=== PATIENT | female | born 1980 | race Caucasian/White ===

== ENCOUNTER → 2019-03-05 | Outpatient (CLI) | payer BC ==
--- NOTE | 2019-03-05 13:00 | RAD ---
Examination: Ultrasound abdomen complete HISTORY: History of abdominal pain COMPARISON: None available FINDINGS: The visualized pancreas grossly appears unremarkable. The visualized aorta, IVC within normal limits of dimension. The echogenicity liver grossly appears unremarkable. The right lobe of the liver measures 12.2 cm. The common bile duct measures 1.9 mm in transverse dimension. No evidence of gallstones. The gallbladder wall thickness measures 1.5 mm. The right kidney measures 10.4 x 4.8 x 4.4 cm. The right kidney is somewhat limited due to bowel gas. The left kidney measures 10.3 x 5.6 x 5.2 cm The spleen measures 9.3 cm in length. IMPRESSION: 1. Unremarkable visualized exam. Electronically signed by: Bob Anderson MD (03/05/2019 12:57 PM) [id number]
--- NOTE | 2019-03-05 13:06 | RAD ---
Examination: Ultrasound pelvis HISTORY: History of left lower quadrant abdominal pain COMPARISON: None available FINDINGS: The uterus measures 7.8 x 4.8 x 4.4 cm. The uterus is retroverted. Small nabothian cysts identified.. Endometrium is 6 mm in thickness. The right ovary measures 2.4 x 2.2 x 1.4 cm. The left ovary measures 2.4 x 1.9 x 1.3 cm. Blood flow identified in the right and left ovaries IMPRESSION: Retroverted uterus , otherwise unremarkable exam. Electronically signed by: Bob Anderson MD (03/05/2019 1:03 PM) [id number]
== END | disposition home or self-care (01) ==
LOC: US 07:45
PROVIDERS: ATTEND Physician Assistant Medical
DX: R10.814 Left lower quadrant abdominal tenderness (principal)
CPT/HCPCS: 76700; 76856